=== PATIENT | male | born 1985 | race Caucasian/White ===

== ENCOUNTER → 2017-01-24 | Outpatient (CLI) | payer OTHER ==
--- NOTE | 2017-01-24 11:50 | KCIC ---
MR of the right shoulder HISTORY: Right shoulder pain. Dull pain. Pain is sharp with certain movements. Injury 10 years ago. Worse in recent months. FINDINGS: The acromioclavicular joint is intact mild edema surrounding the joint. No joint separation. No evidence of a rotator cuff tear. No significant subdeltoid bursal fluid. Mild degenerative signal within the superior labrum. No clear-cut labral tear. No significant joint effusion. Biceps tendon is intact. No bone lesion or acute fracture. No acute soft tissue injury. IMPRESSION: 1. Mild superior labral degeneration without clear-cut labral tear. 2. Mild soft tissue edema around the AC joint could represent a mild injury or strain, but no joint separation or coracoclavicular ligament tear. Electronically signed by: Raul Hidalgo MD (01/24/2017 11:47 AM)
== END | disposition home or self-care (01) ==
LOC: KCIC MRI 10:06
PROVIDERS: ATTEND Physician Assistant Medical
DX: S43.401A Unspecified sprain of right shoulder joint, initial encounter (principal); M79.89 Other specified soft tissue disorders; X58.XXXA Exposure to other specified factors, initial encounter; Y93.89 Activity, other specified; Y92.89 Other specified places as the place of occurrence of the external cause; Y99.8 Other external cause status
CPT/HCPCS: 73221

== ENCOUNTER → 2021-04-15 | Outpatient (CLI) | payer OTHER ==
--- NOTE | 2021-04-15 11:17 | KCIC ---
STUDY: MRI of the left elbow without contrast INDICATION: Left elbow injury. Limited range of motion. COMPARISON: None. TECHNIQUE: Multiplanar MR imaging of the left elbow performed without the use of intravenous or intra -articular contrast. FINDINGS: Bones/cartilage: Trace marrow edema of the olecranon process at the triceps insertion. Otherwise anastasia ow signal is within normal limits. No subchondral/cystic change. The cartilage appears intact. Musculotendinous: Tendinosis and low-grade partial tear of the triceps. [employer] small area of fluid signal within the tendon substance located laterally and 2.3 cm proximal to the insertion, imag e 15 series 8. Tendinosis is primarily along the distal 2.5 cm of the tendon. Mild muscular edema of the distal triceps and faintly of the anconeus. Intact common flexor and extensor origins. Intact bic eps brachii and brachialis. Ligaments: Intact radial collateral ligament, lateral ulnar collateral ligament and annular ligament. Intact ulnar collateral ligament. Nerves: Increased signal and cross-sectional dimension of the ulnar nerve mainly above the cubital tu nnel. Miscellaneous: Small joint effusion. Soft tissue edema primarily at the dorsum of the elbow. Mildly p rominent epitrochlear lymph node medially but with a thin cortex. IMPRESSION: 1. 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 Surrounding soft t issue edema in addition to mild edema of the distal triceps muscle and anconeus. 2. Small elbow joint effusion. 3. Mildly increased signal and cross-sectional dimensions of the ulnar nerve mainly above the cubita l tunnel likely reactive to the triceps findings. Correlate for symptoms of ulnar neuritis. Electronically signed by: EVANS BOOKER MD (04/15/2021 11:15 AM) [facility]
== END ==
LOC: KCIC MRI 08:25
PROVIDERS: ATTEND Physician Assistant Medical
DX: S46.312A Strain of muscle, fascia and tendon of triceps, left arm, initial encounter (principal); M25.422 Effusion, left elbow; R60.0 Localized edema; X58.XXXA Exposure to other specified factors, initial encounter; Y93.89 Activity, other specified; Y92.89 Other specified places as the place of occurrence of the external cause; Y99.8 Other external cause status
CPT/HCPCS: 73221